=== PATIENT | male | born 1995 | race Two or more races ===

== ENCOUNTER 2019-09-25 21:33 | Emergency (ER) | payer SELFPAY ==
[~2019-09-25] VITALS: Ht 175.3 cm; Wt 90.7 kg
[2019-09-26 00:40] VITALS: BP 110/54
== END 2019-09-26 00:44 | disposition home or self-care (01) ==
LOC: ER 21:34
DX: S02.31XA Fracture of orbital floor, right side, initial encounter for closed fracture (principal); S09.90XA Unspecified injury of head, initial encounter; W18.39XA Other fall on same level, initial encounter; Y93.89 Activity, other specified; Y92.89 Other specified places as the place of occurrence of the external cause; Y99.8 Other external cause status
CPT/HCPCS: 70450; 70486

== ENCOUNTER 2022-11-10 18:44 | Emergency (ER) | payer MEDICAID ==
[~2022-11-10] VITALS: Ht 172.7 cm; Wt 80.2 kg
[~2022-11-10 18:44] MED LIST: LEVO500T91 PO
[2022-11-10 20:45] VITALS: BP 149/94; PULSE 79; RESP 20; TEMP 98; O2SAT 99
[2022-11-10] MEDS ORDERED: KETOROLAC TROMETH 30 MG/ML 1ML VIAL IM ONE (22:00)
== END 2022-11-10 22:11 | disposition home or self-care (01) ==
LOC: ER 18:44
DX: G44.209 Tension-type headache, unspecified, not intractable (principal); M54.2 Cervicalgia; F12.10 Cannabis abuse, uncomplicated; F10.10 Alcohol abuse, uncomplicated
CPT/HCPCS: 70450; 72125; 96372; 99285; J1885

== ENCOUNTER 2023-09-11 16:16 | Emergency (ER) | payer SELFPAY ==
[~2023-09-11] VITALS: Ht 172.7 cm; Wt 83.6 kg
[2023-09-11 18:34] VITALS: BP 130/83; PULSE 65; RESP 18; TEMP 97.9; O2SAT 100
[2023-09-11] MEDS ORDERED: DIPH25CA66 PO (19:54)
[2023-09-11] MEDS ORDERED: PRED20TA2 PO (19:54)
== END 2023-09-11 20:08 | disposition home or self-care (01) ==
LOC: ER 16:16
DX: L29.9 Pruritus, unspecified (principal); Z79.899 Other long term (current) drug therapy

== ENCOUNTER 2024-11-27 17:44 | Emergency (ER) | payer MEDICAID ==
[~2024-11-27] VITALS: Ht 172.7 cm; Wt 98.5 kg
[~2024-11-27 17:44] MED LIST changes: +DIPH25CA66 PO; +PRED20TA2 PO
[2024-11-27] MEDS: ACETAMINOPHEN 325 MG TAB PO ONE (18:15)
[2024-11-27] MEDS ORDERED: AMOX875T4 PO (19:38)
[2024-11-27] MEDS ORDERED: ACET500T58 PO (19:38)
--- NOTE | 2024-11-27 19:38 | ED.PDOC ---
Eye-HPI HPI Comments 29-year-old male presents to ER with complaints of sore throat x2 days. Patient reports he has been experiencing sore throat and intermittent fever x2 days. He rates his current sore throat pain a 10/10 and states he last took TheraFlu for her symptoms at 11:00 a.m. yesterday. Patient presents to ER febrile on arrival at 100.6 F, ambulatory, with steady gait, in no distress. Denies cough, shortness of breath, nausea/vomiting, drooling, voice changes or any further symptoms/complaints Chief Complaint: Sore Throat Time Seen by MD: 18:16 Primary Care Provider: CONSTANTINO Reviewed Notes: Nurses Notes, Medications, Allergies Allergies: Coded Allergies: NO KNOWN ALLERGIES (Unverified , 05/24/13) Home Meds Active Scripts Acetaminophen (Acetaminophen) 500 Mg Tab, 500 MG PO Q4HPRN, #30 TAB 0 Refills Prov:LAINA CRAMER 11/27/24 Prednisone (Prednisone) 20 Mg Tab, 20 MG PO BID for 5 Days, #10 TAB 0 Refills Prov:LAINA CRAMER 11/27/24 Amoxicillin & Pot Clavulanate (Amoxicillin/Potassium Cla) 875 Mg Tab, 1 TAB PO BID for 7 Days, #14 TAB 0 Refills Prov:LAINA CRAMER 11/27/24 Prednisone (Prednisone) 20 Mg Tab, 20 MG PO BID for 5 Days, #10 TAB 0 Refills Prov:LAINA CRAMER 09/11/23 Diphenhydramine Hcl (Benadryl Allergy) 25 Mg Cap, 2 CAP PO Q6HPRN, #30 CAP 0 Refills Prov:LAINA CRAMER 09/11/23 Levofloxacin Hemihydrate (LEVOFLOXACIN) 500 Mg Tab, 1 TAB PO DAILY for 7 Days, #7 TAB Prov:HARMONY STAFFORD MD 02/01/22 Information Source: Patient Mode of Arrival: Ambulatory Past Medical History PAST MEDICAL HISTORY: Denies Surgical History: Denies all surgeries Family History Family History: Unknown Social History Smoker: Non-Smoker Alcohol: Denies ETOH Use Drugs: Marijuana Lives In: Home Constitutional: denies: chills, diaphoresis, fatigue, fever, malaise, sweats, weakness, others EENTM: reports: others (As stated in HPI) Respiratory: denies: cough, hemoptysis, orthopnea, SOB at rest, shortness of breath, SOB with excertion, stridor, wheezing, others Cardiovascular: denies: chest pain, dizzy spells, diaphoresis, Dyspnea on exertion, edema, irregular heart beat, left arm pain, lightheadedness, palpitations, PND, syncope, others Gastrointestinal: denies: abdomen distended, abdominal pain, blood streaked bowels, constipated, diarrhea, dysphagia, difficulty swallowing, hematemesis, melena, nausea, poor appetite, poor fluid intake, rectal bleeding, rectal pain, vomiting, others Genitourinary: denies: burning, dysuria, flank pain, frequency, hematuria, incontinence, penile discharge, penile sore, pain, testicle pain, testicle swelling, urgency, others Neurological: denies: dizziness, fainting, headache, left sided numbness, left sided weakness, numbness, paresthesia, pre-existing deficit, right sided numbness, right sided weakness, seizure, speech problems, tingling, tremors, weakness, others Musculoskeletal: denies: back pain, gout, joint pain, joint swelling, muscle pain, muscle stiffness, neck pain, others Integumetry: denies: bruises, change in color, change in hair/nails, dryness, laceration, lesions, lumps, rash, wounds, others Allergic/Immunocompromised: denies: Difficulty Healing, Frequent Infections, Hives, Itching, others Hematologic/Lymphatic: denies: anemia, blood clots, easy bleeding, easy bruising, swollen glands, others Endocrine: denies: excessive hunger, excessive sweating, excessive thirst, excessive urination, flushing, intolerance to cold, intolerance to heat, unexplained weight gain, unexplained weight loss, others Psychiatric: denies: anxiety, bipolar disorder, depression, hopeless, panic disorder, schizophrenia, sleepless, suicidal, others Physical Exam General Appearance: No Apparent Distress, Obese HEENT: PERRL/EOMI, Pharyngeal Erythema (Mild tonsillar swelling/erythema noted bilaterally with white exudates noted on bilateral tonsils. Uvula-normal), TMs Normal Neck: Full Range of Motion, Non-Tender, Normal Respiratory: Chest Non-Tender, Lungs Clear, No Accessory Muscle Use, No Respiratory Distress, Normal Breath Sounds Cardiovascular: No Murmur, No Gallop, Tachycardia Breast Exam: Deferred Gastrointestinal: NOT DONE Genitalia: Deferred Pelvic: Deferred Rectal: Deferred Extremities: Normal capillary refill, Normal range of motion Neurologic: Alert, No Motor Deficits, Normal Affect, Normal Mood, No Sensory Deficits Cerebellar Function: Normal Reflexes: Normal Skin: Dry, Normal Color, Warm Lymphatic: No Adenopathy Was a procedure done? Was a procedure done?: No Sedation Sedation?: No EENT DIFF Eye: N/A Sore Throat: Epiglottitis, Mononeucleosis, Peritonsillar Abscess X-Ray, Labs, Meds, VS Vital Signs Date Time Temp Pulse Resp B/P (MAP) Pulse Ox O2 Delivery O2 Flow Rate FiO2 11/27/24 19:37 101.9 11/27/24 18:15 100.9 11/27/24 17:45 100.6 115 16 133/77 95 100.6 Current Medications Medications (Trade) Dose Ordered Sig/Tomasz Route Start Time Stop Time Status Last Admin Acetaminophen (Tylenol Tablet) 650 mg ONCE ONCE PO 11/27/24 18:15 11/27/24 18:16 DC 11/27/24 18:15 Tylenol 650 mg p.o. ordered Ibuprofen 800 mg p.o. ordered Rocephin 1 g IM ordered Solu-Medrol 125 mg IM ordered Patient had improvement in symptoms, tolerating p.o. intake well and well appearing/in no distress prior to discharge Advised to drink plenty of fluids Cannabis cessation discussed and advised Advised to follow up with PCP in 1-2 days Patient verbalized understanding and agreeable with current plan of care Advised to return to ER immediately if symptoms worsen Time of 1ST Reevaluation: 19:12 Reevaluation 1ST: N/A Patient Education/Counseling: Diagnosis, Treatment, Prognosis, Need For Follow Up Family Education/Counseling: No Family Present SEPSIS Sepsis Screen Date sepsis recognized/suspect: Nov 27, 2024 Time Sepsis recognized/suspect: 1744 Recent Procedure: No On Antibiotic Therapy: No Respiratory Rate >20: No Heart Rate >90: Yes Temp<36 C (96.8 F) or >38.3 C: No SBP <90 or MAP <65 mmHG: No New Acute Mental Status Change: No Is the patient on CPAP, BIPAP,: No Physician Orders Ceftriaxone Sodium (Rocephin) (11/27/24 19:45) Methylprednisolone Sod Succ (Solu Medrol (11/27/24 19:45) Ibuprofen Tablet (Motrin Tablet) (11/27/24 19:45) Vital Signs Date Time Temp Pulse Resp B/P (MAP) Pulse Ox O2 Delivery O2 Flow Rate FiO2 11/27/24 19:37 101.9 11/27/24 18:15 100.9 11/27/24 17:45 100.6 115 16 133/77 95 100.6 Medications Medications Dose Ordered Sig/Tomasz Route Start Time Stop Time Status Last Admin Dose Admin Acetaminophen 650 mg ONCE ONCE PO 11/27/24 18:15 11/27/24 18:16 DC 11/27/24 18:15 Departure 1 Departure Time of Disposition: 19:32 Impression: Primary Impression: Acute tonsillitis Qualified Codes: J03.90 - Acute tonsillitis, unspecified Disposition: HOME / SELF CARE / HOMELESS Condition: Stable e-Prescriptions Acetaminophen (Acetaminophen) 500 Mg Tab 500 MG PO Q4HPRN, #30 TAB 0 Refills Prov: LAINA CRAMER 11/27/24 Prednisone (Prednisone) 20 Mg Tab 20 MG PO BID for 5 Days, #10 TAB 0 Refills Prov: LAINA CRAMER 11/27/24 Amoxicillin & Pot Clavulanate (Amoxicillin/Potassium Cla) 875 Mg Tab 1 TAB PO BID for 7 Days, #14 TAB 0 Refills Prov: LAINA CRAMER 11/27/24 Discharged With: Self Critical Care Note Critical Care Time?: No Stability Stability form required: No Heart Score Heart Score: Heart Score Response (Comments) Value History N/A 0 EKG N/A 0 Age N/A 0 Risk Factors N/A 0 Troponin N/A 0 Total 0 LAINA CRAMER Nov 27, 2024 19:38
[2024-11-27] MEDS: IBUPROFEN 800 MG TAB PO ONE (19:40)
[2024-11-27] MEDS: cefTRIAXone SOD 1,000 MG VL IM ONE (19:40)
[2024-11-27] MEDS: methylPREDNISolone SOD SUCC 125 MG/2 ML VL IM ONE (19:40)
[2024-11-27 20:04] VITALS: BP 118/82; PULSE 91; RESP 16; TEMP 99.1; O2SAT 97
== END 2024-11-27 20:10 | disposition home or self-care (01) ==
LOC: ER 17:49
DX: J03.90 Acute tonsillitis, unspecified (principal); F12.90 Cannabis use, unspecified, uncomplicated; Z79.52 Long term (current) use of systemic steroids; Z79.899 Other long term (current) drug therapy
CPT/HCPCS: 96372; 99284; J0696; J2919